=== PATIENT | male | born 1980 | race Caucasian/White ===

== ENCOUNTER 2016-12-13 09:37 | Outpatient (RCR) | payer BC ==
[~2016-12-13 09:37] MED LIST: CEPH500C PO; HYDR-1231 PO
== END 2016-12-14 06:47 | disposition home or self-care (01) ==
LOC: LAB 09:37
PROVIDERS: ATTEND Obstetrics & Gynecology
DX: N46.9 Male infertility, unspecified (principal)
CPT/HCPCS: 89320

== ENCOUNTER 2017-04-30 14:40 | Emergency (ER) | payer BC ==
[~2017-04-30] VITALS: Ht 170.2 cm; Wt 59.0 kg
--- OUTSIDE RECORDS SUMMARY | 2017-04-30 14:44 | XMS REPORT | Continuity of Care Document ---
Author Author [facility] Address Unknown Phone Unavailable Allergies Active Description Code Type Severity Reaction Onset Reported/Identified Relationship to Patient Clinical Status Yes No Known Drug Allergies [id number] Drug Allergy Unknown N/ A 02/11/2015 Medications Problems Date Dx Coded Attending Type Code Diagnosis Diagnosed By 05/17/2012 MARYDICKSON GAS TESTER, SHAN A 305.1 TOBACCO ABUSE 05/17/2012 PRACHI WHIPPLEJulianne SHAN A 508.8 RESPIRATORY CONDITIONS DUE TO OTHER SPECIFIED EXTERNAL AGENTS 05/17/2012 PRACHI WHIPPLEJulianne SHAN A 786.2 COUGH 05/17/2012 PRACHI WHIPPLEJulianne SHAN A 787.1 HEARTBURN 05/17/2012 PRACHI WHIPPLEJulianne SHAN A V04.81 FLU DX (3 YRS AND ABOVE, IM) 05/17/2012 PRACHI WHIPPLEJulianne SHAN A V06.1 TDAP DX 05/17/2012 TIANA VELARDE APRNYL A V17.49 FAM HX HYPERTENSION 05/17/2012 PRACHI TIPTON SHAN A V72.62 LAB SCREENING- GENERAL PHYSICAL 05/17/2012 BASILIA DDLavon, ARRON Toussaint 305.1 TOBACCO ABUSE 05/17/2012 BASILIA DDLavon, ARRON Toussaint 508.8 RESPIRATORY CONDITIONS DUE TO OTHER SPECIFIED EXTERNAL AGENTS 05/17/2012 BASILIA DDS, ARRON Toussaint 786.2 COUGH 05/17/2012 BASILIA DDS, ARRON Toussaint 787.1 HEARTBURN 05/17/2012 BASILIA DDLavon, ARRON Toussaint V04.81 FLU DX (3 YRS AND ABOVE, IM) 05/17/2012 BASILIA DDLavon, ARRON Toussaint V06.1 TDAP DX 05/17/2012 BASILIA DDS, ARRON Toussaint V17.49 FAM HX HYPERTENSION 05/17/2012 BASILIA DDS, ARRON Toussaint V72.62 LAB SCREENING- GENERAL PHYSICAL 02/11/2015 JUANA PICKARD Ot 882.2 02/11/2015 JUANA PICKARD Ot E000.0 02/11/2015 JUANA PICKARD Ot E849.3 02/11/2015 JUANA PICKARD Ot E920.8 12/14/2016 ROSIE DEAN DO Ot N46.9 MALE INFERTILITY, UNSPECIFIED Procedures Code [place] [address] ROUTINE VENIPUNCTURE 05/17/2012 52761 H PYLORI (IN-HOUSE) 05/17/2012 36091 XRAY CHEST 2 VIEW 05/17/2012 65380 CMP 05/17/2012 27091 LIPID PANEL 05/17 Results Encounters ACCT No. Visit Date/Time Discharge Status Pt. Type Provider Facility Loc./Unit Complaint [id number] 02/05/2013 10:33:00 02/05/2013 23: 59:59 CLS Outpatient ARRON CUI DDS [id number] 05/17/2012 10:39:04 05/17/2012 23: 59:59 CLS Outpatient SHAN VELARDE APRN [id number] 12/13/2016 09:37:00 2016 06:47:00 DIS Outpatient ROSIE DEAN DO [facility] LAB INFERTILITY [id number] 02/11/2015 16:14:00 2014 18:35:00 DIS Emergency JUANA PICKARD [facility] ER
[2017-04-30] MEDS ORDERED: TETRACAINE 0.5% OPHTH SOLN 4 ML BTL (SINGLE DOSE ONLY) OP ONE (15:15)
[2017-04-30] MEDS ORDERED: FLUORESCEIN (FLUOR-I-STRIPS) 1 MG STRP OU ONE (15:15)
--- NOTE | 2017-04-30 15:20 | ED EENT ---
History of Present Illness General Chief Complaint: Eye Problems Stated Complaint: POSS METAL IN R EYE Source: patient, spouse Exam Limitations: no limitations History of Present Illness Time seen by provider: 15:11 Initial Comments Patient presents to ER by private conveyance with his with a chief complaint that here 4 days ago he was grinding on some metal with an angle contour grinder and felt a speck of foreign debris get up in his eye. He used eyedrops several times but could not get it out. His states she sees a small speck in his eye right around the iris. He called his child caregiver but they're out of town. He has prescription eyeglasses but he does not wear them routinely. He was wearing protective eyeglasses but not goggles at the time. He has no history of eye injury. Allergies and Home Medications Allergies Coded Allergies: No Known Drug Allergies (Unverified , 02/11/15) Home Medications No Active Prescriptions or Reported Meds Review of Systems Constitutional: No chills, No fever Eyes: Denies Blindness, Denies Blurred Vision, Denies Drainage, Foreign Body Sensation, Inflammation Ears: Denies Dizziness, Denies Pain Nose: denies epistaxis, denies pain Mouth: denies pain, denies swelling Throat: denies pain, denies swelling Respiratory: No cough, No short of breath Skin: No pruritus, No rash Neurological: Denies Headache, Denies Numbness, Denies Paresthesia Past Dlvcxji-Wtcmms-Ocijlr Hx Patient Social History Alcohol Use: Denies Use Recreational Drug Use: No Smoking Status: Current Everyday Smoker Type Used: Cigarettes Recent Foreign Travel: No Contact w/Someone Who Travel: No Immunizations Up To Date Tetanus Booster (TDap): Less than 5yrs Blood Transfusions Adverse Reaction to a Blood Tr: No Family Medical History Significant Family History: No Pertinent Family Hx Visual Acuity : Eye Location: Bilaterally Vision Acuity Degree: 20/30 Physical Exam Vital Signs Vital Sign - Last 12Hours 04/30/ 15:10 Temp 98.0 Pulse 58 Resp 18 B/P (MAP) 133/80 Pulse Ox 99 General Appearance: WD/WN, mild distress Eyes: bilateral eye normal inspection, bilateral eye PERRL, bilateral eye EOMI , bilateral eye other (right eye on the medial edge of the iris in the sclera is a small punctate rust colored foreign body.) Ears: bilateral ear auricle normal, bilateral ear canal normal, bilateral ear TM normal Nose: normal inspection, No active bleeding, No discharge Mouth/Throat: normal mouth inspection, pharynx normal Neck: non-tender, normal inspection Neurologic/Psychiatric: alert, oriented x 3 Skin: normal color, warm/dry Eye : Location: right eye Eye FB Removal: removal w/ cotton swab Eye Debridement: Pedrito Lens (1 L LR make sure it runs up intotheother) Eye Irrigated w/ Saline (ccs): 1000 Anesthesia (gtts): Tetracaine Progress/Results/Core Measures Results/Orders My Orders Orders - REUBEN HAIR Tetracaine 0.5% Ophth Saba Sdv (Tetracai (04/30/17 15:15) Fluorescein Strips (Ybhtb-D-Iksdbf) (04/30/17 15:15) Lactated Ringers (Lr 1000 Ml Iv Solution (04/30/17 16:14) Ns Iv 500 Ml (Sodium Chloride 0.9%) (04/30/17 16:07) Medications Given in ED Current Medications Medications Dose Ordered Sig/Ingrid Route Start Time Stop Time Status Last Admin Dose Admin Fluorescein Sodium 1 mg ONCE ONCE OU 04/30/17 15:15 04/30/17 15:18 DC 04/30/17 15:28 1 MG Tetracaine HCl 1 ml ONCE ONCE OP 04/30/17 15:15 04/30/17 15:18 DC 04/30/17 15:29 1 ML Vital Signs/I&O Vital Sign - Last 12Hours 04/30/17 15:10 Temp 98.0 Pulse 58 Resp 18 B/P (MAP) 133/80 Pulse Ox 99 Progress Note : Time: 16:19 Progress Note None the eye up with tetracaine and attempted to remove the splinter of foreign body seen by gauze technique in all 4 cardinal directions but only remove a small flake. Unable to catch hold of the other bit. We will try Pedrito lens with LR to irrigate the eye out and if that is not successful we will talk to Optometry. If there is no local option than we may have to transfer him out to ophthalmology. Consults Consults : Consulting Physician: EDUARDO KHANNA OD Consults Notes Discussed the case. He recommends we evaluate and can remove the foreign body greatest not give him a call back. Roderick, Dr. Dr. Ryan Gonsalez are all 3 out of state presently. Either Transfer him to ophthalmology/Optometry elsewhere or can offer him TobraDex 3-4 times a day and follow-up in the clinic Tuesday. Machinist Class B is already at attempted to contact the other local child caregiver and none of them have returned his call yet. Departure Impression Impression: Primary Impression: Foreign body in cornea, right eye, initial encounter Disposition: HOME, SELF-CARE Condition: Stable Departure-Patient Inst. Decision time for Depature: 17:01 Referrals: NO,LOCAL PHYSICIAN (PCP/Family) Primary Care Physician Patient Instructions: Corneal Abrasion (DC), How to Use Eye Drops Add. Discharge Instructions: property maintenance supervisor the TobraDex and start applying 2 drops to the affected right eye 4 times a day, every 6 hours and plan to follow up Tuesday in the office with Dr. Khanna. If you have changes in your vision, increasing pain or other worrisome symptoms such as fever or nausea return to the ER otherwise plan on following up with the child caregiver Tuesday. All discharge instructions reviewed with patient and/or family. Voiced understanding. Scripts Tobramycin/Dexamethasone (Tobradex Eye Drops) 5 Ml Drops.susp 2 DROPS OP QID for 7 Days, #1 EACH 0 Refills Prov: REUBEN HAIR 04/30/17 Work/School Note: Work Release Form Date Seen in the Emergency Department: Apr 30, 2017 Return to Work: May 02, 2017 Restrictions: No Restrictions Copy Copies To 1: EDUARDO KHANNA OD REUBEN HAIR Apr 30, 2017 15:20
[2017-04-30] MEDS ORDERED: NS IV 500 ML 500 ML ONE (16:07)
[2017-04-30] MEDS ORDERED: LACTATED RINGERS 1,000 ML IV STA (16:14)
[2017-04-30] MEDS ORDERED: TOBR5DRO2 OP (17:03)
[2017-04-30 17:06] VITALS: BP 127/84
== END 2017-04-30 17:06 | disposition home or self-care (01) ==
LOC: EDUNIT# 14:40 → ER 14:41
DX: T15.01XA Foreign body in cornea, right eye, initial encounter (principal); F17.210 Nicotine dependence, cigarettes, uncomplicated
CPT/HCPCS: 99282

== ENCOUNTER → 2019-06-19 | Outpatient (CLI) | payer BC ==
[~2019-06-19] MED LIST changes: +TOBR5DRO2 OP
[2019-06-19 06:47] LABS: BASOPHILS % (AUTO) 0 % (0-10); EOSINOPHILS # (AUTO) 0.2 10^3/uL (0.0-0.3); EOSINOPHILS % (AUTO) 3 % (0-10); HEMATOCRIT 44 % (40-54); HEMOGLOBIN 15.1 G/DL (13.3-17.7); LYMPHOCYTES # (AUTO) 1.8 X 10^3 (1.0-4.0); LYMPHOCYTES % (AUTO) 24 % (12-44); MEAN CORPUSCULAR HEMOGLOBIN 31 PG (25-34); MEAN CORPUSCULAR HGB CONC 34 G/DL (32-36); MEAN CORPUSCULAR VOLUME 89 FL (80-99); MEAN PLATELET VOLUME 8.9 FL (7.4-10.4); MONOCYTES # (AUTO) 0.6 X 10^3 (0.0-1.0); MONOCYTES % (AUTO) 8 % (0-12); NEUTROPHILS # (AUTO) 4.7 X 10^3 (1.8-7.8); NEUTROPHILS % (AUTO) 64 % (42-75); PLATELET COUNT 209 10^3/uL (130-400); RED CELL DISTRIBUTION WIDTH 11.9 % (10.0-14.5); WHITE BLOOD COUNT 7.4 10^3/uL (4.3-11.0)
[2019-06-19 07:10] LABS: ALANINE AMINOTRANSFERASE 26 U/L (0-55); ALBUMIN 4.2 GM/DL (3.2-4.5); ALKALINE PHOSPHATASE 105 U/L (40-136); BILIRUBIN,TOTAL 0.3 MG/DL (0.1-1.0); BUN/CREATININE RATIO 10; CALCIUM 9.1 MG/DL (8.5-10.1); CARBON DIOXIDE 25 MMOL/L (21-32); CHLORIDE 105 MMOL/L (98-107); CHOLESTEROL 141 MG/DL (< 200); CREATININE SERUM 0.94 MG/DL (0.60-1.30); GFR ESTIMATED > 60; GLUCOSE 105 MG/DL (70-105); HDL CHOLESTEROL 32 MG/DL (40-60); SODIUM 142 MMOL/L (135-145); TRIGLYCERIDES 135 MG/DL (<150); VLDL CHOLESTEROL 27 MG/DL (5-40)
== END ==
LOC: LAB 06:35
PROVIDERS: ATTEND Family Medicine
DX: Z00.00 Encounter for general adult medical examination without abnormal findings (principal)
CPT/HCPCS: 36415; 80053; 80061; 85025

== ENCOUNTER 2020-07-20 15:57 | Emergency (ER) | payer SELFPAY ==
[~2020-07-20] VITALS: Ht 172 cm; Wt 75.0 kg
--- NOTE | 2020-07-20 16:14 | ED Trauma-Multisystem ---
General Chief Complaint: Trauma POV Arrival Activation Stated Complaint: L WRIST INJURY, HEAD INJ Activation Level: Level 2 Nursing Triage Note: PT REPORTS HE FELL APPROX 10' AT HOME WHILE HANGING SHELVES. PT DENIES LOC, NO C/O NECK PAIN. OBVIOUS DEFORMITY NOTED TO LT WRIST. NO OTHER C/O VOICED AT THIS TIME. Source of Information: Patient Exam Limitations: No Limitations History of Present Illness Date Seen by Provider: Jul 20, 2020 Time Seen by Provider: 16:02 Initial Comments Patient presents to the ER by private conveyance with chief complaint he had a fall from a 8 or 10th rung of a extension ladder while hanging shelves. He landed on outstretched hand has obvious deformity fracture of his left wrist and third finger distal phalanx. Otherwise intact range of motion with his other 4 fingers. Sensation intact. He has a small scalp laceration on his occipital scalp and abrasion on his left anterior neck. No numbness or weakness. Able to ambulate in. No shortness of breath or loss of consciousness. He is not on any blood thinners. The patient states he had a tetanus vaccine within the last 5 years. Allergies and Home Medications Allergies Coded Allergies: No Known Drug Allergies (Unverified , 02/11/15) Home Medications Cephalexin 500 Mg Tablet, 500 MG PO TID Prescribed by: REUBEN HAIR on 07/20/201808 Hydrocodone/Acetaminophen 1 Each Tablet, 1-2 EACH PO Q6H PRN for PAIN- BREAKTHROUGH Prescribed by: REUBEN HAIR on 07/20/201808 Ondansetron 4 Mg Tab.rapdis, 4 MG PO Q6H PRN for NAUSEA/VOMITING Prescribed by: REUBEN HAIR on 07/20/201808 Tobramycin/Dexamethasone 5 Ml Drops.susp, 2 DROPS OP QID Prescribed by: REUBEN HAIR on 04/30/17 1703 Patient Home Medication List Home Medication List Reviewed: Yes Review of Systems Review of Systems Constitutional: No chills, No fever Eyes: Denies Blindness, Denies Blurred Vision Ears: Denies Dizziness, Denies Pain Nose: No Bloody Discharge, No Clear Discharge Mouth: No Bloody Discharge, No Clear Discharge Throat: No Aphonia, No Discharge Respiratory: No cough, No short of breath Gastrointestinal: No abdominal pain, No nausea, No vomiting Genitourinary: No discharge, No dysuria Musculoskeletal: joint pain All Other Systems Reviewed Negative Unless Noted: Yes Past Qipwuvc-Xbfwwx-Xkppph Hx Patient Social History Alcohol Use: Denies Use Recreational Drug Use: No Smoking Status: Current Everyday Smoker Type Used: Electronic/Vapor Recent Foreign Travel: No Contact w/Someone Who Travel: No Recent Infectious Disease Expo: No Recent Hopitalizations: No Physical Abuse: No Sexual Abuse: No Mistreated: No Fear: No Immunizations Up To Date Tetanus Booster (TDap): Less than 5yrs Past Medical History Surgeries: No Respiratory: No Cardiac: No Neurological: No Genitourinary: No Gastrointestinal: No Musculoskeletal: No Endocrine: No HEENT: No Cancer: No Psychosocial: No Integumentary: No Blood Disorders: No Adverse Reaction/Blood Tranf: No Family Medical History No Pertinent Family Hx Physical Exam Vital Signs Vital Signs - First Documented 07/20/20 17:02 O2 Delivery Nasal Cannula O2 Flow Rate 2.00 Height, Weight, BMI Height: 5'7.00" Weight: 130lbs. oz. 58.058010kx; 25.00 BMI Method:Stated General Appearance: WD/WN, Mild Distress Head: Other (2 cm simple laceration into the subcutaneous on the left occiput); No Rboerts's Sign, No Raccoon Eyes Eyes: Bilateral Eye Normal Inspection, Bilateral Eye PERRL, Bilateral Eye EOMI Ears, Nose, Throat: Hearing Grossly Normal, No Dental Injury Neck: Full Range of Motion, Normal Inspection, Non Tender Cardiovascular: Regular Rate, Rhythm, No Edema, Normal Peripheral Pulses Respiratory: Lungs Clear, Normal Breath Sounds, No Accessory Muscle Use, No Respiratory Distress Gastrointestinal: Non Tender, Soft Back: Normal Inspection, No Vertebral Tenderness Extremity: Normal Capillary Refill, Other (Left wrist with obvious swan-neck deformity and fracture deformity with mild angulation of the third digit left hand. Skin tear on the finger and on the palmar aspect of the left wrist which may indicate open fracture.) Neurologic/Psychiatric: Alert, Oriented x3 Skin: Normal Color, Warm/Dry Steuben Coma Score Best Eye Response (Steuben): (4) Open Spontaneously Best Verbal Response (Steuben): (5) Oriented Best Motor Response (Steuben): (6) Obeys Commands Lew Total: 15 Procedures/Interventions Procedure: Conscious sedation for reduction of left wrist dislocation and third left Patient Education: Explained Benefits, Explained Risks, Pt. Ack. Understanding Agreement on procedure with pt: Yes Breath Sounds per Auscultation: Clear Heart Sounds per Auscultation: Regular Airway Exam: Mouth opens >2 fingers, Neck Full Range of Motion, Visulation of Uvula Sedation Adminstration Time: 17:03 Total Time spent in CS 25 mins Successful sedation and analgesia to reduce both joints place stitches and carolyne and thoroughly clean and explore wounds. Re-examination Time: 17:56 Re-examination The patient is having some continued nausea likely related to ketamine versus concussion. We have mental low stimuli environment. He is not having any pain. He has been given 8 mg of Zofran IV. We are now giving him 25 mg of Phenergan IV in his IV fluids Care turned over to: Dr. Barraza Wound Location: Scalp Other Wound Location Left occiput Wound Length (cm): 3 Wound's Depth, Shape: linear, sub Q Wound Explored: no foreign body removed Irrigated w/ Saline (ccs): 100 Betadine Prep?: Yes (Chlorhexidine) Anesthesia: Lidocaine w/ Epi Volume Anesthetic (ccs): 2 Wound Debrided: minimal Staple Repair: Stapler 35W Number of Sutures: 7 Sterile Dressing Applied?: Yes Wound Location: Upper Extremities Other Wound Location Third finger left hand anterior side Wound Length (cm): 1 Wound's Depth, Shape: linear, flap, sub Q Wound Explored: no foreign body removed Irrigated w/ Saline (ccs): 50 Betadine Prep?: Yes (Chlorhexidine and sterile) Anesthesia: 1% Lidocaine Volume Anesthetic (ccs): 1 Wound Debrided: minimal Suture: Prolene Suture Size: 4-0 Number of Sutures: 2 Sterile Dressing Applied?: Yes Splinting and Joint Reduction : Location: Left wrist Pre-Proc Neuro Vasc Exam: normal Post-Proc Neuro Vasc Exam: normal, unchanged from pre-exam Progress After explained the risks, benefits and alternatives to the patient he accepted the procedure of conscious sedation for reduction of the left wrist. After sedation and analgesia was achieved using ketamine we applied gentle rearward traction at the elbow and were able to easily reduce the left wrist with no resistance. He had good 2+ palpable radial pulse symmetric to the right side after the dislocation/relocation. The capillary refill was incredibly brisk. Sensation was intact and range of motion was much improved. He had x-rays which demonstrated good reduction of the left wrist. At the same time of the third digit left hand distal phalanx was reduced easily with gentle traction and demonstrated good reduction on postop films. Reduction Attempts: 1 Pre-Procedure NV Exam: Yes post joint reduction film: joint reduced Perfecto wrap: Yes Hand-Made Type: fiberglass Splint Application: Long Arm (Sugar tong splint with 4 inch fiberglass) Progress/Results/Core Measures Results/Orders Lab Results Laboratory Tests Test 07/20/20 16:12 Range/Units White Blood Count 7.3 4.3-11.0 10^3/uL Red Blood Count 4.55 4.30-5.52 10^6/uL Hemoglobin 14.2 13.3-17.7 g/dL Hematocrit 42 40-54 % Mean Corpuscular Volume 91 80-99 fL Mean Corpuscular Hemoglobin 31 25-34 pg Mean Corpuscular Hemoglobin Concent 34 32-36 g/dL Red Cell Distribution Width 11.7 10.0-14.5 % Platelet Count 205 130-400 10^3/uL Mean Platelet Volume 9.1 9.0-12.2 fL Sodium Level 136 135-145 MMOL/L Potassium Level 3.3 L 3.6-5.0 MMOL/L Chloride Level 102 98-107 MMOL/L Carbon Dioxide Level 25 21-32 MMOL/L Anion Gap 9 5-14 MMOL/L Blood Urea Nitrogen 10 7-18 MG/DL Creatinine 1.04 0.60-1.30 MG/DL Estimat Glomerular Filtration Rate > 60 BUN/Creatinine Ratio 10 Glucose Level 173 H 70-105 MG/DL Calcium Level 8.5 8.5-10.1 MG/DL Total Bilirubin 0.2 0.1-1.0 MG/DL Direct Bilirubin 0.1 0.0-0.3 MG/DL Indirect Bilirubin 0.1 MG/DL Aspartate Amino Transf (AST/SGOT) 18 5-34 U/L Alanine Aminotransferase (ALT/SGPT) 21 0-55 U/L Alkaline Phosphatase 94 40-136 U/L Total Protein 7.1 6.4-8.2 GM/DL Albumin 4.1 3.2-4.5 GM/DL Serum Alcohol < 10 <10 MG/DL My Orders Orders - REUBEN HAIR Ct Head/Cervical Spine Wo (07/20/20 16:10) Wrist, Left, 3 Views Or More (07/20/20 16:10) Hand, Left, 3 Views (07/20/20 16:10) Cbc No Diff (07/20/20 16:10) Basic Metabolic Panel (07/20/20 16:10) Liver Panel (07/20/20 16:10) Alcohol (07/20/20 16:10) Ua Culture If Indicated (07/20/20 16:10) End Tidal Co2 (07/20/20 16:10) Monitor-Rhythm Ecg Trace Only (07/20/20 16:10) Ed Iv/Invasive Line Start (07/20/20 16:10) Fentanyl Injection (Sublimaze Injection (07/20/20 16:15) Lidocaine/Epi 2% 1:100,000 (Xylocaine/Ep (07/20/20 16:30) Ns Iv 1000 Ml (Sodium Chloride 0.9%) (07/20/20 16:41) Ketamine Injection (Ketalar Injection) (07/20/20 17:00) Ed Iv/Invasive Line Start (07/20/20 16:52) Ns Iv 500 Ml (Sodium Chloride 0.9%) (07/20/20 17:00) Cefazolin Injection (Ancef Injection) (07/20/20 17:15) Ondansetron Injection (Zofran Injectio (07/20/20 17:27) Hand, Left, 2 Views (07/20/20 17:13) Promethazine Injection (Phenergan Injec (07/20/20 18:00) Promethazine Injection (Phenergan Injec (07/20/20 17:51) Rx-Hydrocodone/Apap 5-325 Mg (Rx-Vicodin (07/20/20 18:15) Rx-Ondansetron Po (Rx-Zofran Po) (07/20/20 18:14) Rx-Promethazine Hcl (Rx-Phenergan Supp) (07/20/20 18:14) Medications Given in ED Current Medications Medications Dose Ordered Sig/Ingrid Route Start Time Stop Time Status Last Admin Dose Admin Acetaminophen/ Hydrocodone Bitart 1 ea Q4H PRN PO 07/20/20 18:15 07/20/20 18:20 1 EA Cefazolin Sodium 1000 mg/Sterile Water 10 ml @ 200 mls/hr ONCE ONCE IV 07/20/20 17:15 07/20/20 17:17 DC 07/20/20 17:22 200 MLS/HR Fentanyl Citrate 50 mcg ONCE ONCE IVP 07/20/20 16:15 07/20/20 16:16 DC 07/20/20 16:49 50 MCG Ketamine HCl 75 mg ONCE ONCE IM 07/20/20 17:00 07/20/20 17:01 DC 07/20/20 17:03 75 MG Lidocaine/ Epinephrine 20 ml ONCE ONCE INJ 07/20/20 16:30 07/20/20 16:31 DC 07/20/20 17:33 3 ML Ondansetron HCl 4 mg STK-MED ONCE .ROUTE 07/20/20 17:27 07/20/20 17:30 DC 07/20/20 17:32 8 MG Promethazine HCl 25 mg ONCE ONCE IVP 07/20/20 18:00 07/20/20 18:01 DC 07/20/20 17:55 25 MG Sodium Chloride 1,000 ml @ ud STK-MED ONCE .ROUTE 07/20/20 16:41 07/20/20 16:45 DC 07/20/20 16:47 1,000 MLS/HR Vital Signs/I&O 07/20/20 17:02 O2 Delivery Nasal Cannula O2 Flow Rate 2.00 Progress Progress Note #1: Time: 16:29 Progress Note We will treat it as an open fracture because there is a small skin tear at the site of the wrist deformity. Plan to give him Ancef. He is up-to-date on tetanus. 50 mcg of fentanyl and then we will get some x-rays had a CT of his head and C-spine. C-spine precautions were put in place. We will clean up his head wound stapled shut and treat with lidocaine with epinephrine. Plan to use ketamine and fentanyl for analgesia and conscious sedation to reduce his left wrist and finger. Level 2 trauma was called. End-tidal CO2 was placed. Progress Note #2: Time: 18:01 Progress Note Discussed the case with Yasmeen his . We are going to send the patient home with some pain and nausea medicines. We are going to keep him here for another hour or so to make sure his nausea is under control and he is fully out of his sedation before sending him home. Turned over care to Dr. Barraza. Diagnostic Imaging Diagonstic Imaging: Xray Plain Films/CT/US/NM/MRI: hand (l) Comments [facility]. [place], [place] NAME: REGINALDO MUNOZ [facility] REC#: [id number] PT STATUS: REG ER : 1980 PHYSICIAN: REUBEN HAIR MD ADMIT DATE: 07/20/20/ER Signed Date of Exam:07/20/20 HAND, LEFT, 3 VIEWS INDICATION: Pain from a fall. COMPARISON: Imaging from the same date as well as from 02/11/2015. TECHNIQUE: Three radiographs of the left hand dated 07/20/2020. FINDINGS: Posterior dislocation of the wrist joint is noted. This is associated with fracturing of the most distal aspect of the radius with intra-articular extension. Portions of the articular surface of the distal radius remain associated with the dislocated carpus. Posterior dislocation of the 3rd DIP joint with slight medial subluxation as well. No suspicious radiopaque foreign body. IMPRESSION: 1. Left wrist fracture and dislocation, as described above. 2. Acute posterior dislocation of the 3rd DIP joint with mild overriding. Dictated by: Dictated on workstation # [id number] Dict: 07/20/20 1626 Trans: 07/20/201645 [facility] [id number] Interpreted by: JUSTIN COLES MD Electronically signed by: JUSTIN COLES MD 07/20/201645 Reviewed: Reviewed by Me Diagonstic Imaging: Xray Plain Films/CT/US/NM/MRI: forearm (Left wrist) Comments NAME: REGINALDO MUNOZ [facility] REC#: [id number] PT STATUS: REG ER : 1980 PHYSICIAN: REUBEN HAIR MD ADMIT DATE: 07/20/20/ER Draft Date of Exam:07/20/20 WRIST, LEFT, 3 VIEWS OR MORE INDICATION: Traumatic deformity. EXAMINATION: Multiple views of the left wrist. FINDINGS: There is posteriorly displaced fracture of the distal radius which maintains relationship with the proximal row of the carpus. Post reduction radiographs recommended. No identifiable fracture to the proximal or distal carpal row. IMPRESSION: Posteriorly displaced distal radial fracture with the carpus appearing to communicate with displaced dominant fragment. Severely displaced posteriorly. Post reduction radiographs recommended to exclude other injuries. No additional fracture at this exam can be seen. Dictated on workstation # [id number] Dict: 07/20/20 1626 Trans: 07/20/20 1633 PJE [id number] Interpreted by: CASA DOMINGUEZ Electronically signed by: Reviewed: Reviewed by Hi Diagonstic Imaging: CT (Without IV contrast) Plain Films/CT/US/NM/MRI: c-spine, head Comments [facility] [place], [place] NAME: REGINALDO MUNOZ [facility] REC#: [id number] PT STATUS: REG ER : 1980 PHYSICIAN: REUBEN HAIR MD ADMIT DATE: 07/20/20/ER Draft Date of Exam:07/20/20 CT HEAD/CERVICAL SPINE WO PROCEDURE: CT head and CT cervical spine without contrast. TECHNIQUE: Multiple contiguous axial images were obtained through the brain and cervical spine without the use of intravenous contrast. Sagittal and coronal reformations through the cervical spine were then performed. Auto Exposure Controls were utilized during the CT exam to meet ALARA standards for radiation dose reduction. INDICATION: 10' fall. Traumatic deformity to the wrist and finger. CT head: There is no hemorrhage, hydrocephalus, edema, mass, mass effect or evidence for an elevation of the intracranial pressures. The basilar cisterns are patent. There is no sulcal effacement. No abnormal extra-axial fluid collection. No hemo-sinus. No calvarial fracture deformity. No pneumocephalus. CT cervical spine: Body heights are maintained. The alignment anatomic. There is degenerative changes, greatest at C5-C6 where there appears to be a mild to moderate degree of canal and mild biforaminal stenosis. No high-grade stenosis. No cervical fracture. No paravertebral hemorrhage. The central skull base appears intact. IMPRESSION: 1. CT head: Negative. 2. CT cervical spine: Degenerative changes without fracture or traumatic malalignment. Dictated on workstation # [id number] Dict: 07/20/20 1636 Trans: 07/20/20 1644 PJE [id number] Interpreted by: CASA DOMINGUEZ Electronically signed by: Reviewed: Reviewed by Me Diagonstic Imaging: Xray Plain Films/CT/US/NM/MRI: hand Comments ThirdPost reduction x-rays show similar fractures but now successfully reduced wrist and left hand. NAME: REGINALDO MUNOZ [facility] REC#: [id number] PT STATUS: REG ER : 1980 PHYSICIAN: REUBEN HAIR MD ADMIT DATE: 07/20/20/ER Signed Date of Exam:07/20/20 HAND, LEFT, 2 VIEWS EXAM: Hand, left, 2 views. INDICATION: Left wrist fracture and dislocation. COMPARISON: Left wrist radiographs from earlier today. FINDINGS/ IMPRESSION: 1. Images acquired through splinting material. There has been interval reduction of the left wrist dislocation with near-anatomic alignment of the distal left radius intra-articular fracture. 2. Minimally angulated fracture through the waist of the left scaphoid. 3. There appears to be a small fracture fragment between the scaphoid and lunate. 4. Interval reduction of the left 3rd DIP dislocation. No associated fracture is identified. Dictated by: Dictated on workstation # [id number] Dict: 07/20/20 1745 Trans: 07/20/20 1800 [facility] [id number] Interpreted by: MARIE HARDING MD Electronically signed by: MARIE HARDING MD 07/20/20 1800 Reviewed: Reviewed by Me Consults : Consulting Physician: EYAD SOSA MD Consults Notes Dr. Sosa reviewed the case and agrees with disposition. 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 LOZANO and would be appropriate to follow-up with him next week. He agrees with antibiotics, cleaning and closing the wounds, splinting slinging and appropriate immobilization and follow-up with orthopedic surgery. Departure Impression Primary Impression: Left wrist fracture Qualified Codes: S62.102B - Fracture of unspecified carpal bone, left wrist, initial encounter for open fracture Additional Impressions: Finger fracture, left Qualified Codes: S62.633B - Displaced fracture of distal phalanx of left middle finger, initial encounter for open fracture Concussion Qualified Codes: S06.0X0A - Concussion without loss of consciousness, initial encounter Fall from ladder Qualified Codes: W11.XXXA - Fall on and from ladder, initial encounter Disposition: 01 HOME, SELF-CARE Condition: Stable Departure-Patient Inst. Decision time for Depature: 18:02 Referrals: RAMEZ NAVARRO MD (PCP/Family) Primary Care Physician VALERIE LOZANO MD Patient Instructions: Concussion, Adult (DC), Finger Dislocation, Forearm and Wrist Fractures ED, Laceration Repair With Carolyne (DC), Laceration Repair With Stitches (DC), Moderate Sedation in Adults Add. Discharge Instructions: Keep the wounds clean with regular soap and water. Tylenol 650 mg every 8 hours as necessary for pain. Ibuprofen 800 mg every 8 hours as necessary for pain. Hydrocodone 1 tablet every 6 hours as necessary for breakthrough pain. Hydrocodone will cause drowsiness and should not be combined with alcohol. Hydrocodone will also cause constipation. I recommend MiraLAX 1 capful in 6 to 8 ounces of fluid daily that you are using hydrocodone to maintain regularity of your colon. Ondansetron 1 tablet under the tongue allow it to dissolve every 6 hours if you have nausea and/or vomiting. Phenergan 1 tablet every 6 hours as necessary for breakthrough nausea and/or vom iting despite ondansetron. Follow-up with Dr. Lozano by calling for an appointment first thing tomorrow morning. Keep your arm in the sling except for bathing. Do not get the splint wet. If you start to have numbness and tingling of your fingers then you should unwrap the splint and rewrap it slightly looser. Elevate your hand above the level of your heart and use ice applied directly to the joints that hurt to reduce pain and swelling. Keflex 1 capsule 3 times a day for the next 5 days to prevent infection. Follow-up with your primary care doctor or return to the ER if you notice signs of infection such as fever, increasing redness around the wounds, discharge from the wound, etc. Expect to have a concussion. You need to rest for the next 5 to 7 days and stay in a low stimuli environment. Do not use your brain more than necessary. Vegetative. If you are overdoing it then you will start to experience symptoms of concussion which include nausea, irritability, difficulty sleeping, difficulty concentrating, somnolence, difficulty walking. If you feel the symptoms then the solution is to take some appropriate medication to treat the symptoms and get sleep. Follow-up with your primary care doctor if you need help managing the symptoms or return to the nearest ER. Return to the ER promptly if you have confusion, do not recognize faces or other worrisome symptoms not listed above. Return to the ER in 7 to 10 days to have the sutures from your finger and the carolyne from your head removed. You may keep your wounds clean with regular soap and water, shampoo or body wash as necessary. Do not use antiseptic such as hydrogen peroxide, alcohol, chlorhexidine, iodine as this will prolong wound healing. You are considered concussion free when you are without symptoms for 48 hours at your usual pace for working and not using any medications to mask the symptoms such as Tylenol or nausea medicines etc. Until you are concussion free you should be careful and avoid risk of reinjury of your head. Wear your seatbelt, stay off of scaffolding or out of trees/ladders and no unnecessary pugilism. All discharge instructions reviewed with patient and/or family. Voiced understanding. Scripts Ondansetron (Ondansetron Odt) 4 Mg Tab.rapdis 4 MG PO Q6H PRN for NAUSEA/VOMITING, #15 TAB 0 Refills Prov: REUBEN HAIR 07/20/20 Hydrocodone/Acetaminophen (Hydrocodone-Acetamin 5-325 mg) 1 Each Tablet 1-2 EACH PO Q6H PRN for PAIN-BREAKTHROUGH, #20 TAB 0 Refills Prov: REUBEN HAIR 07/20/20 Cephalexin (Cephalexin) 500 Mg Tablet 500 MG PO TID for 5 Days, #15 TAB 0 Refills Prov: REUBEN HAIR 07/20/20 Work/School Note: Work Release Form Date Seen in the Emergency Department: Jul 20, 2020 Return to Work: Jul 28, 2020 Restrictions: Need Release from Doctor Other Restrictions Listed Below: No lifting with left arm. Copy Copies To 1: RAMEZ NAVARRO MD; VALERIE LOZANO MD, TITUS J Jul 20, 2020 16:14
[2020-07-20] MEDS ORDERED: fentaNYL INJECTION 100 MCG/2 ML AMP IVP ONE (16:15)
[2020-07-20 16:18] LABS: HEMOGLOBIN 14.2 g/dL (13.3-17.7); MEAN PLATELET VOLUME 9.1 fL (9.0-12.2); WHITE BLOOD COUNT 7.3 10^3/uL (4.3-11.0)
[2020-07-20 16:29] LABS: ALBUMIN 4.1 GM/DL (3.2-4.5); CHLORIDE 102 MMOL/L (98-107); POTASSIUM 3.3 MMOL/L (3.6-5.0); SODIUM 136 MMOL/L (135-145)
[2020-07-20 16:30] LABS: CALCIUM 8.5 MG/DL (8.5-10.1)
[2020-07-20] MEDS ORDERED: LIDOCAINE/EPI 2% 1:100,00 (XYLOCAINE) 20 ML VIAL INJ ONE (16:30)
[2020-07-20 16:31] LABS: GLUCOSE 173 MG/DL (70-105); TOTAL PROTEIN 7.1 GM/DL (6.4-8.2)
[2020-07-20 16:32] LABS: CARBON DIOXIDE 25 MMOL/L (21-32)
[2020-07-20 16:33] LABS: BILIRUBIN,TOTAL 0.2 MG/DL (0.1-1.0)
[2020-07-20 16:35] LABS: ALKALINE PHOSPHATASE 94 U/L (40-136); CREATININE SERUM 1.04 MG/DL (0.60-1.30); GFR ESTIMATED > 60
--- NOTE | 2020-07-20 16:35 | Diagnostic Imaging Report ---
INDICATION: Traumatic deformity. EXAMINATION: Multiple views of the left wrist. FINDINGS: There is posteriorly displaced fracture of the distal radius which maintains relationship with the proximal row of the carpus. Post reduction radiographs recommended. No identifiable fracture to the proximal or distal carpal row. IMPRESSION: Posteriorly displaced distal radial fracture with the carpus appearing to communicate with displaced dominant fragment. Severely displaced posteriorly. Post reduction radiographs recommended to exclude other injuries. No additional fracture at this exam can be seen. Dictated by: Dictated on workstation # [id number]
[2020-07-20 16:36] LABS: BILIRUBIN,DIRECT 0.1 MG/DL (0.0-0.3); BILIRUBIN,INDIRECT 0.1 MG/DL; BUN/CREATININE RATIO 10
--- NOTE | 2020-07-20 16:36 | Diagnostic Imaging Report ---
INDICATION: Pain from a fall. COMPARISON: Imaging from the same date as well as from 02/11/2015. TECHNIQUE: Three radiographs of the left hand dated 07/20/2020. FINDINGS: Posterior dislocation of the wrist joint is noted. This is associated with fracturing of the most distal aspect of the radius with intra-articular extension. Portions of the articular surface of the distal radius remain associated with the dislocated carpus. Posterior dislocation of the 3rd DIP joint with slight medial subluxation as well. No suspicious radiopaque foreign body. IMPRESSION: 1. Left wrist fracture and dislocation, as described above. 2. Acute posterior dislocation of the 3rd DIP joint with mild overriding. Dictated by: Dictated on workstation # [id number]
[2020-07-20 16:38] LABS: ALANINE AMINOTRANSFERASE 21 U/L (0-55)
[2020-07-20] MEDS ORDERED: NS IV 1000 ML 1,000 ML ONE (16:41)
--- NOTE | 2020-07-20 16:45 | Diagnostic Imaging Report ---
PROCEDURE: CT head and CT cervical spine without contrast. TECHNIQUE: Multiple contiguous axial images were obtained through the brain and cervical spine without the use of intravenous contrast. Sagittal and coronal reformations through the cervical spine were then performed. Auto Exposure Controls were utilized during the CT exam to meet ALARA standards for radiation dose reduction. INDICATION: 10' fall. Traumatic deformity to the wrist and finger. CT head: There is no hemorrhage, hydrocephalus, edema, mass, mass effect or evidence for an elevation of the intracranial pressures. The basilar cisterns are patent. There is no sulcal effacement. No abnormal extra-axial fluid collection. No hemo-sinus. No calvarial fracture deformity. No pneumocephalus. CT cervical spine: Body heights are maintained. The alignment anatomic. There is degenerative changes, greatest at C5-C6 where there appears to be a mild to moderate degree of canal and mild biforaminal stenosis. No high-grade stenosis. No cervical fracture. No paravertebral hemorrhage. The central skull base appears intact. IMPRESSION: 1. CT head: Negative. 2. CT cervical spine: Degenerative changes without fracture or traumatic malalignment. Dictated by: Dictated on workstation # [id number]
--- NOTE | 2020-07-20 16:48 | NUR ---
CONSENT FOR CONSCIOUS SEDATION SIGNED BY PT. RISKS ET BENEFITS DISCUSSED, UNDERSTANDING VOICED.
--- NOTE | 2020-07-20 16:58 | NUR ---
MAICOL W/ RT TO BEDSIDE
[2020-07-20] MEDS ORDERED: NS IV 500 ML 500 ML IV ONE (17:00)
[2020-07-20] MEDS ORDERED: KETAMINE HCL 100 MG/ML 5 ML VIAL IM ONE (17:00)
--- NOTE | 2020-07-20 17:02 | NUR ---
DR HAIR ET RT AT BEDSIDE W/ THIS RN. TIME OUT W/ DR HAIR ET STAFF. 1703-PROCEDURE STARTED, KETAMINE 75MG IV ADMINISTERED. 171-REDUCTION COMPLETE, SPLINT APPLIED BY DR HAIR. PT TOLERATED WELL 1716-SCALP LAC PREPPED ET LOCAL ADMINISTERED BY DR HAIR. LAMBERT X7 PLACED 1726-POST REDUCTION FILM OBTAINED. PT VOMITING AT THIS TIME 1736-LACERATION TO MIDDLE FINGER LT HAND PREPPED ET SUTURED BY DR HAIR W/ 4-0 PROLENE, SUTURES X2 PLACED. BANDAIND TO SIDE ET 3RD ET 4TH FINGERS ANNE TAPED TOGETHER PER DR HAIR ORDER 1740-PROCEDURE COMPLETE
[2020-07-20] MEDS ORDERED: ceFAZolin INJECTION 1,000 MG in WATER (STERILE) FOR INJECTION 10 ML IV ONE (17:15)
[2020-07-20] MEDS ORDERED: ONDANSETRON 4 MG/2 ML (SDV) Z0FRAN ONE (17:27)
--- NOTE | 2020-07-20 17:49 | NUR ---
PT RESTING QUIETLY, AWAKE, A/OX3. PT TEXTING HIS AT THIS TIME. VSS, NO C/O VOICED.
[2020-07-20] MEDS ORDERED: PROMETHAZINE INJ 25 MG/ML (PHENERGAN) AMP ONE (17:51)
--- NOTE | 2020-07-20 17:51 | Diagnostic Imaging Report ---
EXAM: Hand, left, 2 views. INDICATION: Left wrist fracture and dislocation. COMPARISON: Left wrist radiographs from earlier today. FINDINGS/ IMPRESSION: 1. Images acquired through splinting material. There has been interval reduction of the left wrist dislocation with near-anatomic alignment of the distal left radius intra-articular fracture. 2. Minimally angulated fracture through the waist of the left scaphoid. 3. There appears to be a small fracture fragment between the scaphoid and lunate. 4. Interval reduction of the left 3rd DIP dislocation. No associated fracture is identified. Dictated by: Dictated on workstation # [id number]
[2020-07-20] MEDS ORDERED: PROMETHAZINE INJ 25 MG/ML (PHENERGAN) AMP IVP ONE (18:00)
[2020-07-20] MEDS ORDERED: CEPH500T PO (18:09)
[2020-07-20] MEDS ORDERED: ONDA4TAB11 PO (18:09)
[2020-07-20] MEDS ORDERED: ACHD5005 PO (18:09)
[2020-07-20] MEDS ORDERED: RX-ONDANSETRON 4 MG ODT (ZOFRAN) PPK #4 PO STA (18:14)
[2020-07-20] MEDS ORDERED: RX-PHENERGAN 25 MG SUPP PPK#3 PR STA (18:14)
[2020-07-20] MEDS ORDERED: RX-HYDROCODONE/APAP 5/325 MG #4 TAB PK PO PRN (18:15)
[2020-07-20 18:42] VITALS: BP 101/76
--- NOTE | 2020-07-20 18:42 | NUR ---
PT DISCHARGED TO HOME W/ MEDS, RX ET INSTR. PT TO F/U W/ PCP, TAKE MEDS DIRECTED ET RETURN IF SYMPTOMS CHANGE OR GET WORSE. PT'S VOICED UNDERSTANDING. NO QUESTIONS.
== END 2020-07-20 18:42 | disposition home or self-care (01) ==
LOC: EDUNIT# 15:57 → ER 15:59
DX: S06.0X0A Concussion without loss of consciousness, initial encounter (principal); S62.002A Unspecified fracture of navicular [scaphoid] bone of left wrist, initial encounter for closed fracture; S62.663A Nondisplaced fracture of distal phalanx of left middle finger, initial encounter for closed fracture; S52.502A Unspecified fracture of the lower end of left radius, initial encounter for closed fracture; S01.01XA Laceration without foreign body of scalp, initial encounter; S10.81XA Abrasion of other specified part of neck, initial encounter; R40.2360 Coma scale, best motor response, obeys commands, unspecified time; R40.2140 Coma scale, eyes open, spontaneous, unspecified time; R40.2250 Coma scale, best verbal response, oriented, unspecified time; F17.290 Nicotine dependence, other tobacco product, uncomplicated; W11.XXXA Fall on and from ladder, initial encounter
CPT/HCPCS: 12002; 29105; 70450; 72125; 73110; 73120; 73130; 80048; 80076; 85027; 93041; 99285; G0480; 36415; 80320